=== PATIENT | male | born 2000 | race Caucasian/White ===

== ENCOUNTER 2022-02-28 14:16 | Emergency (ER) | payer OTHER ==
[2022-02-28] MEDS ORDERED: Lidocaine 1% (PF) 30 ML VIAL ONE (15:24)
[2022-02-28] MEDS ORDERED: Boostrix 0.5 ML (Tdap) VIAL (>/=7 yrs of age) ONE (15:24)
[2022-02-28] MEDS ORDERED: Bacitracin 1 PK ONE (15:39)
== END 2022-02-28 16:40 | disposition home or self-care (01) ==
LOC: CSHERS 14:16
DX: S61.412A Laceration without foreign body of left hand, initial encounter (principal); W26.0XXA Contact with knife, initial encounter; Z23 Encounter for immunization
CPT/HCPCS: 12002; 90471; 90715; J2001